=== PATIENT | male | born 1985 | race Two or more races ===

== ENCOUNTER 2023-11-14 21:23 | Emergency (ER) | payer OTHER ==
[2023-11-14 21:37] VITALS: BP 111/78; PULSE 89; RESP 24; TEMP 98.1; BMI 29.4
[2023-11-14 22:50] LABS: BASO % 0.5 % (0-2.0); EOS % 1.3 % (0-4.5); HEMATOCRIT 40.2 % (35.4-49); HEMOGLOBIN 13.3 GM/dL (11.7-16.9); LYMPH % 20.7 % (8-40); MCH 29.3 pg (25.7-33.7); MCHC 33.2 g/dl (32.0-35.9); MEAN CELL VOLUME 88.4 fl (80-96); MEAN PLT VOLUME 7.7 fl (7.5-11.1); NEUT % 71.5 % (42.8-82.8); PLATELET COUNT 250 10^3/uL (134-434); RBC 4.55 M/mm3 (4.00-5.60); RDW 13.4 % (11.9-15.9)
[2023-11-14 23:10] LABS: POTASSIUM 3.7 mmol/L (3.5-5.1)
[2023-11-14 23:14] LABS: ALBUMIN 3.6 g/dl (3.4-5.0); BLOOD UREA NITROGEN 11.5 mg/dL (7-18); CALCIUM 8.1 mg/dL (8.5-10.1)
[2023-11-14 23:17] LABS: CREATININE 0.8 mg/dL (0.55-1.3)
[2023-11-14 23:19] LABS: TOT PROT 6.5 g/dl (6.4-8.2)
[2023-11-14 23:24] LABS: BILIRUBIN,TOTAL 0.2 mg/dL (0.2-1)
== END 2023-11-15 | disposition home or self-care (01) ==
LOC: JER 21:23 → EDBD 21:23 → JER 11-15
DX: R55 Syncope and collapse (principal); R11.0 Nausea
CPT/HCPCS: 36415; 71045-TC-FY; 80053; 84484; 85025; 99284-25